=== PATIENT | female | born 1965 | race African-American/Black ===

== ENCOUNTER 2017-12-13 07:02 | Emergency (ER) | payer BC ==
[2017-12-13 07:12] VITALS: BP 140/81
--- NOTE | 2017-12-13 07:27 | UC ---
Throat Pain/Nasal Praveen HPI - HPI Summary HPI Summary: PT PRESENTS WITH ONSET OF ST, PAIN WITH SWALLOWING AND DRY COUGH SINCE LAST NIGHT. NO FEVER, EAR PAIN OR NAUSEA. HAD ONE EPISODE OF POST-TUSSIVE EMESIS. - History of Current Complaint Chief Complaint: UCRespiratory Stated Complaint: SORE THROAT, COUGH Time Seen by Provider: 12/13/17 07:11 Hx Obtained From: Patient Hx Last Menstrual Period: 12/02/17 Onset/Duration: Gradual Onset, Lasting Hours, Still Present Severity: Moderate Pain Intensity: 8 Pain Scale Used: 0-10 Numeric Cough: Nonproductive Associated Signs & Symptoms: Negative: Hoarseness, Nasal Discharge, Fever - Allergies/Home Medications Allergies/Adverse Reactions: Allergies Allergy/AdvReac Type Severity Reaction Status Date / Time celery Allergy Blisters Verified 12/13/17 07:13 morphine Allergy Rash And Verified 12/13/17 07:13 Itching Home Medications: Home Medications guaiFENesin [Mucinex] 600 mg PO BID PRN 12/13/17 [History Confirmed 12/13/17] PMH/Surg Hx/FS Hx/Imm Hx Respiratory History: Asthma - Surgical History Surgical History: Yes Surgery Procedure, Year, and Place: pelvic for endometriosis,rt and lt foot - Family History Known Family History: Positive: Hypertension - Social History Alcohol Use: Rare Substance Use Type: None Smoking Status (MU): Never Smoked Tobacco Review of Systems Constitutional: Negative ENT: Sore Throat Respiratory: Cough Cardiovascular: Negative Gastrointestinal: Vomiting - POST-TUSSIVE All Other Systems Reviewed And Are Negative: Yes Physical Exam Triage Information Reviewed: Yes Appearance: Well-Appearing, No Pain Distress, Well-Nourished Vital Signs: Initial Vital Signs Temp 97.0 F 12/13/17 07:07 Pulse 65 12/13/17 07:07 Resp 16 12/13/17 07:07 BP 140/81 12/13/17 07:07 Pulse Ox 97 12/13/17 07:07 Vital Signs Reviewed: Yes Eyes: Positive: Conjunctiva Clear ENT: Positive: Hearing grossly normal, Pharynx normal, TMs normal Neck: Positive: Supple, Nontender, No Lymphadenopathy Respiratory Exam: Normal Cardiovascular Exam: Normal Abdomen Description: Positive: Soft Musculoskeletal: Positive: No Edema Neurological: Positive: Alert Psychological: Positive: Age Appropriate Behavior Skin: Negative: rashes Diagnostics - Laboratory Diagnostic Studies Completed/Ordered: STREP NEG Throat Pain/Nasal Course/Dx - Differential Dx/Diagnosis Provider Diagnoses: ACUTE PHARYNGITIS Discharge - Sign-Out/Discharge Documenting (check all that apply): Discharge - Discharge Plan Condition: Stable Disposition: HOME Patient Education Materials: Pharyngitis (ED) Referrals: Thang Alvarze MD [Primary Care Provider] - If Needed Additional Instructions: STREP TEST NEGATIVE. YOUR SYMPTOMS ARE LIKELY VIRALLY MEDIATED AND SHOULD RESOLVE ON THEIR OWN WITH TIME. NO INDICATION FOR ANTIBIOTICS AT PRESENT. REST, HYDRATE, OTC MEDS NEEDED. SEEK FOLLOW-UP IF YOU ARE NOT IMPROVING OVER THE NEXT 1-2 WEEKS. OTC CHLORASEPTIC OR CEPACOL LOZENGES AND/OR IBUPROFEN FOR SORE THROAT NEEDED. - Billing Disposition and Condition Condition: STABLE Disposition: HOME
== END 2017-12-13 08:00 | disposition home or self-care (01) ==
LOC: UCEAST 07:02
DX: J02.9 Acute pharyngitis, unspecified (principal); J45.909 Unspecified asthma, uncomplicated; Z88.5 Allergy status to narcotic agent
CPT/HCPCS: 87651; 99211; G0463

== ENCOUNTER 2017-12-27 07:05 | Emergency (ER) | payer BC ==
[2017-12-27 07:19] VITALS: BP 137/77
--- NOTE | 2017-12-27 07:37 | UC ---
Knee Pain HPI - HPI Summary HPI Summary: Patient here with sudden onset of right knee pain that occurred while walking yesterday. She reports a fall about a month ago but no injury more recent than that. Her right knee did hurt initially after the fall but has been fine for weeks. She denies numbness or tingling. She is concerned that her knee may give out due to the pain. She is walking with a limp. - History of Current Complaint Chief Complaint: UCLowerExtremity Stated Complaint: KNEE PAIN Time Seen by Provider: 12/27/17 07:21 Hx Obtained From: Patient Hx Last Menstrual Period: 11/29/17 Onset/Duration: Sudden Onset, Lasting Days - 1 day, Still Present Severity Initially: Moderate Severity Currently: Moderate Location Of Injury: MEDIAL RIGHT KNEE Pain Intensity: 5 Pain Scale Used: 0-10 Numeric Character: Sharp Aggravating Factor(s): Weight Bearing Alleviating Factor(s): Rest Associated Signs And Symptoms: Negative: Swelling, Redness, Bruising, Fever, Weakness, Numbness, Tingling Able to Bear Weight: Yes - WITH PAIN - Allergies/Home Medications Allergies/Adverse Reactions: Allergies Allergy/AdvReac Type Severity Reaction Status Date / Time celery Allergy Blisters Verified 12/27/17 07:19 morphine Allergy Rash And Verified 12/27/17 07:19 Itching Home Medications: Home Medications Ibuprofen 200 mg PO Q6H PRN 12/27/17 [History Confirmed 12/27/17] PMH/Surg Hx/FS Hx/Imm Hx Respiratory History: Asthma - Surgical History Surgical History: Yes Surgery Procedure, Year, and Place: pelvic for endometriosis,rt and lt foot - Family History Known Family History: Positive: Hypertension - Social History Alcohol Use: Rare Substance Use Type: None Smoking Status (MU): Never Smoked Tobacco Review of Systems Constitutional: Negative Skin: Negative Respiratory: Negative Cardiovascular: Negative Gastrointestinal: Negative Musculoskeletal: Arthralgia All Other Systems Reviewed And Are Negative: Yes Physical Exam Triage Information Reviewed: Yes Appearance: Well-Appearing, No Pain Distress, Well-Nourished Vital Signs: Initial Vital Signs Temp 97.3 F 12/27/17 07:14 Pulse 70 12/27/17 07:14 Resp 16 12/27/17 07:14 BP 137/77 12/27/17 07:14 Pulse Ox 100 12/27/17 07:14 Vital Signs Reviewed: Yes Eyes: Positive: Conjunctiva Clear ENT: Positive: Hearing grossly normal Neck: Positive: Supple Respiratory: Positive: No respiratory distress, No accessory muscle use Cardiovascular: Positive: Pulses Normal Abdomen Description: Positive: Soft Musculoskeletal: Positive: ROM Intact, No Edema, Other: - RIGHT KNEE: NO JOINT LINE TENDERNESS OR TENDERNESS OVER ANY BONY PROMINENCES. MCL AND LCL INTACT TO STRESS TESTING. NEG LACHMANS. NEG DRAWERS SIGNS. NEG MCMURRAYS. NO TENDERNESS OVER PATELLAR LIGAMENT OR QUADRICEPS TENDON. MILD TENDERNESS MEDIALLY JUST PROXIMAL TO PATELLA Neurological: Positive: Alert Psychological: Positive: Age Appropriate Behavior Skin: Negative: rashes Diagnostics - Radiology RIGHT KNEE XRAY Xray Interpretation: No Acute Changes Radiology Interpretation Completed By: Radiologist Knee Pain Course/Dx - Differential Dx/Diagnosis Provider Diagnoses: RIGHT KNEE PAIN/OSTEOARTHRITIS Discharge - Sign-Out/Discharge Documenting (check all that apply): Discharge - Discharge Plan Condition: Stable Disposition: HOME Patient Education Materials: Osteoarthritis (ED), Knee Pain (ED) Referrals: Dilshad Anguiano MD [Medical Doctor] - 1 Week Thang Alvarez MD [Primary Care Provider] - If Needed Additional Instructions: X-ray today shows some mild osteoarthritis but no acute injury. Rest, ice, compress, elevate. Follow-up with Ortho next week for further evaluation. OTC Ibuprofen as needed for discomfort. Knee immobilizer and crutches to help with mobility. BE SURE TO GO THROUGH SLOW RANGE OF MOTION AND STRETCHING EXERCISES DAILY YOU ARE ABLE TO PREVENT STIFFENING UP AND MAKING THE DISCOMFORT WORSE. - Billing Disposition and Condition Condition: STABLE Disposition: HOME
--- NOTE | 2017-12-27 08:01 | RAD ---
HISTORY: Medial right knee pain, remote trauma. COMPARISONS: March 05, 2010 VIEWS: 4, Frontal, lateral, axial, and oblique views of the right knee FINDINGS: BONE DENSITY: Normal. BONES: There is no displaced fracture. JOINTS: There is mild tricompartmental osteoarthritis. There is no suprapatellar joint effusion or lipohemarthrosis. ALIGNMENT: There is no dislocation. SOFT TISSUES: Unremarkable. OTHER FINDINGS: None. IMPRESSION: NO ACUTE OSSEOUS INJURY. IF SYMPTOMS PERSIST, RECOMMEND REPEAT IMAGING.
== END 2017-12-27 08:42 | disposition home or self-care (01) ==
LOC: UCEAST 07:05
DX: M25.561 Pain in right knee (principal); M17.11 Unilateral primary osteoarthritis, right knee; J45.909 Unspecified asthma, uncomplicated; Z88.5 Allergy status to narcotic agent
CPT/HCPCS: 99213; G0463

== ENCOUNTER 2018-02-26 19:25 | Emergency (ER) | payer BC, OTHER ==
[2018-02-26 19:45] VITALS: BP 150/88
[2018-02-26] MEDS ORDERED: Ibuprofen TAB* 600 MG PO ONE (20:54)
--- NOTE | 2018-02-26 20:57 | UC ---
Angelique Schwartz Rebecca, scribed for Virginie Echevarria MD on 02/26/18 at 205 . Lower Extremity/Ankle HPI - HPI Summary HPI Summary: Pt is a 52 y/o F who presents to [facility] c/o R buttock pain. On 02/14 (12 days ago ) she was running in the [employer] with someone she works with and she felt a pop or snap in the right buttock. Immediately after, she applied ice, and has tried Epsom salts, and Bengay. She has also been stretching and using heat. Pain radiates into the anterior pelvis, is currently severe, ranked 9/10, unchanged by Tylenol and Ibuprofen, last taken last week. Reports that is feels like there is a knot and is unsure of bruising. No leg weakness no paresthesia last analgesia 5 days ago. Pain worse with prolonged standing Sx aggravated by sitting and driving. Unsure of LNMP or chance of . Injury occurred while at work Pt's medications reviewed this visit - History of Current Complaint Chief Complaint: UCUpperExtremity Stated Complaint: MUSCLE COMPLAINT Time Seen by Provider: 02/26/18 20:45 Hx Obtained From: Patient Hx Last Menstrual Period: 11/29/17 Onset/Duration: Lasting Weeks - 2 weeks, Still Present Severity Currently: Severe Pain Intensity: 9 Pain Scale Used: 0-10 Numeric Aggravating Factor(s): Other - Sitting, driving Alleviating Factor(s): Nothing Able to Bear Weight: Yes - Allergies/Home Medications Allergies/Adverse Reactions: Allergies Allergy/AdvReac Type Severity Reaction Status Date / Time celery Allergy Blisters Verified 02/26/18 19:45 morphine Allergy Rash And Verified 02/26/18 19:45 Itching PMH/Surg Hx/FS Hx/Imm Hx - Additional Past Medical History Additional PMH: NEGATIVE PMHx: HTN, HLD, DM Previously Healthy: Yes - Surgical History Surgical History: Yes Surgery Procedure, Year, and Place: pelvic for endometriosis,rt and lt foot - Family History Known Family History: Positive: Hypertension - Social History Occupation: Employed Full-time Lives: With Family Alcohol Use: Occasionally Substance Use Type: None Smoking Status (MU): Never Smoked Tobacco Review of Systems Constitutional: Negative Skin: Negative Eyes: Negative ENT: Negative Respiratory: Negative Cardiovascular: Negative Gastrointestinal: Negative Genitourinary: Negative Motor: Negative Neurovascular: Negative Musculoskeletal: Other: - R buttock and pelvic pain Neurological: Negative Psychological: Negative All Other Systems Reviewed And Are Negative: Yes Physical Exam - Summary Physical Exam Summary: Vital Signs Reviewed: Yes A+Ox3, no distress Eyes: Conjunctiva Clear, J CARLOS. EOM intact and full ENT: Hearing grossly normal TM x 2 clear, mmoist, uvula midline, no exudate, no erythema Neck: Positive: Supple Respiratory: Positive: No respiratory distress, No accessory muscle use + CTA throughout no w/r Cardiovascular: RRR nl s1, s2 no m/r CBT <2 sec abd soft + BS nt/nd no guarding, no distension Musculoskeletal Exam: MENCHACA x 4 + SLE right with pulling sensation in right buttock + internal/external rotation full rom knee, ankle no spinous process pain + TTP right buttock with direct palp no palpable hematoma Neurological: Positive: Alert, + sensation throughout 2+ patellar + gross sensation Psychological: Positive: Normal Response To Family Skin: Positive: no rash, no ecchymosis Triage Information Reviewed: Yes Vital Signs: Initial Vital Signs Temp 98.9 F 02/26/18 19:38 Pulse 78 02/26/18 19:38 Resp 18 02/26/18 19:38 BP 150/88 02/26/18 19:38 Pulse Ox 99 02/26/18 19:38 Diagnostics - Radiology Hip/Pelvis XR Xray Interpretation: No Acute Changes - NO EVIDENCE FOR FRACTURE. Dr. Echevarria reviewed this report. Radiology Interpretation Completed By: Radiologist Re-Evaluation - Re-Evaluation First Eval Re-Evaluation Time: 21:32 Comment: Pt is doing well, discussed XR results. pt declined crutches. motrin/ apap. heat. stretching. physical therapy referral Lower Extremity Course/Dx - Course Course Of Treatment: Patient medications reviewed this visit. Workman's comp forms were completed. pt with right buttock pain following a pulling sensation while running 2 weeks. suspect muscle strain. will image for avulsion fx - Differential Dx/Diagnosis Provider Diagnoses: muscle strain right gluteus Discharge - Sign-Out/Discharge Documenting (check all that apply): Discharge/Admit/Transfer - Discharge - Discharge Plan Condition: Stable Disposition: HOME Patient Education Materials: Muscle Strain (ED) Referrals: [facility] [Provider Group] [facility] [place] Physical therapy,PT [Medical Doctor] - (Call tomorrow for an appointment. ) Thang Alvarez MD [Primary Care Provider] - Additional Instructions: - alternate ibuprofen 600mg (advil, motrin) and Tylenol 1000mg every 3 hours as needed for guillermo - apply warm heat 20 minutes at a time - Once your muscles are warm, slow gentle stretching exercises - contact the sports medicine clinic to schedule a follow-up appointment - You have been given a referral to physical therapy. okay to call the physical therapist of your choice - you have been given a referral to [facility] physical therapy - Billing Disposition and Condition Condition: STABLE Disposition: Home The documentation as recorded by the Angelique brasher Rebecca accurately reflects the service I personally performed and the decisions made by me, Virginie Echevarria MD.
--- NOTE | 2018-02-26 21:29 | RAD ---
INDICATION: Right buttock pain, right pubic symphysis strain. COMPARISON: There are no prior studies available for comparison. TECHNIQUE: An AP view of the pelvis and frontal and lateral views of the right hip were obtained. FINDINGS: The bones are in normal alignment. No fracture is seen. Joint spaces appear maintained. IMPRESSION: NO EVIDENCE FOR FRACTURE.
== END 2018-02-26 21:44 | disposition home or self-care (01) ==
LOC: UCEAST 19:25
DX: S39.012A Strain of muscle, fascia and tendon of lower back, initial encounter (principal); Y93.02 Activity, running; X58.XXXA Exposure to other specified factors, initial encounter; Y92.89 Other specified places as the place of occurrence of the external cause; Z91.018 Allergy to other foods; Z88.5 Allergy status to narcotic agent
CPT/HCPCS: 81003; 84702; 87086; 99211; A9270-GY; G0463

== ENCOUNTER 2018-07-01 00:06 | Emergency (ER) | payer BC, OTHER ==
[2018-07-01] MEDS ORDERED: Ibuprofen TAB* 400 MG PO ONE (02:22)
[2018-07-01] MEDS ORDERED: oxyCODONE/Acetamin 5/325 MG* TAB PO ONE (02:23)
[2018-07-01 02:39] VITALS: BP 00/00
--- NOTE | 2018-07-01 04:22 | ED ---
Lower Extremity - HPI Summary HPI Summary: Patient is a 53 y/o F w/ c/o left thigh spasms. She reports difficulty laying on the leg and pain with movement, palpation. Sx onset yesterday, patient has been experiencing worse episodes tonight. Episodes are reported to last for about an hour. On triage, pain is rated 0/10. She denies home medications and states she does not take control. - History of Current Complaint Chief Complaint: EDExtremityLower Stated Complaint: INNER THIGH PAIN Time Seen by Provider: 07/01/18 01:57 Hx Obtained From: Patient Hx Last Menstrual Period: 11/29/17 Mechanism Of Injury: Unknown Onset of Pain: Days - onset yesterday Onset/Duration: Days - onset yesterday Severity Currently: None - pain is denied on triage Pain Intensity: 0 Pain Scale Used: 0-10 Numeric Timing: Intermittent, Lasting Hours - lasts an hour Location: Is Discrete @ - left thigh Character Of Pain: Spasmodic Associated Signs And Symptoms: Positive: Negative Aggravating Factor(s): Movement, Other - palpation, lying on left leg Alleviating Factor(s): Nothing - Allergies/Home Medications Allergies/Adverse Reactions: Allergies Allergy/AdvReac Type Severity Reaction Status Date / Time celery Allergy Blisters Verified 02/26/18 19:45 morphine Allergy Rash And Verified 02/26/18 19:45 Itching PMH/Surg Hx/FS Hx/Imm Hx Endocrine/Hematology History: Denies: Hx Diabetes Cardiovascular History: Denies: Hx Hypertension, Hx Pacemaker/ICD Respiratory History: Reports: Hx Asthma - SEASONAL Sensory History: Denies: Hx Hearing Aid Psychiatric History: Denies: Hx Panic Disorder - Cancer History Hx Chemotherapy: No Hx Radiation Therapy: No - Surgical History Surgery Procedure, Year, and Place: pelvic for endometriosis, BILAT GANLION CYSTS AND BONE SPUR REMOVAL Infectious Disease History: No Infectious Disease History: Denies: Hx Clostridium Difficile, Hx Hepatitis, Hx Human Immunodeficiency Virus (HIV), Hx of Known/Suspected MRSA, Hx Shingles, Hx Tuberculosis, History Other Infectious Disease, Traveled Outside the [place] in Last 30 Days - Family History Known Family History: Positive: Hypertension - Social History Alcohol Use: Occasionally Substance Use Type: Reports: None Smoking Status (MU): Never Smoked Tobacco Review of Systems Negative: Fever - on vitals, temp is 97.6 F Positive: Other - left thigh spasms All Other Systems Reviewed And Are Negative: Yes Physical Exam - Summary Physical Exam Summary: VITAL SIGNS: Reviewed. GENERAL: Patient is a well-developed and nourished female who is lying comfortable in the stretcher. Patient is not in any acute respiratory distress. HEAD AND FACE: No signs of trauma. No ecchymosis, hematomas or skull depressions. No sinus tenderness. EYES: PERRLA, EOMI x 2, No injected conjunctiva, no nystagmus. EARS: Hearing grossly intact. Ear canals and tympanic membranes are within normal limits. MOUTH: Oropharynx within normal limits. NECK: Supple, trachea is midline, no adenopathy, no JVD, no carotid bruit, no c- spine tenderness, neck with full ROM. CHEST: Symmetric, no tenderness at palpation LUNGS: Clear to auscultation bilaterally. No wheezing or crackles. CVS: Regular rate and rhythm, S1 and S2 present, no murmurs or gallops appreciated. ABDOMEN: Soft, non-tender. No signs of distention. No rebound no guarding, and no masses palpated. Bowel sounds are normal. EXTREMITIES: FROM in all major joints, no edema, no cyanosis or clubbing; tenderness over medial aspect of the upper thigh. NEURO: Alert and oriented x 3. No acute neurological deficits. Speech is normal and follows commands. SKIN: Dry and warm Triage Information Reviewed: Yes Vital Signs On Initial Exam: Initial Vitals Temp Pulse Resp BP Pulse Ox 97.6 F 79 20 137/76 96 07/01/18 00:08 07/01/18 00:08 07/01/18 00:08 07/01/18 00:08 07/01/18 00:08 Vital Signs Reviewed: Yes Diagnostics - Vital Signs Vital Signs Temp Pulse Resp BP Pulse Ox 07/01/18 02:38 0 F 0 0 00/00 0 07/01/18 02:31 15 07/01/18 00:08 97.6 F 79 20 137/76 96 - Laboratory Lab Statement: Any lab studies that have been ordered have been reviewed, and results considered in the medical decision making process. Re-Evaluation - Re-Evaluation First Eval Re-Evaluation Time: 02:32 Comment: As there is no ultrasound available at this time, patient will be discharged to home and is advised to follow up with PCP or return to ED for US to rule out DVT. Patient understands and agrees with this follow up plan. Lower Extremity Course/Dx - Course Course Of Treatment: Patient is a 53 y/o F w/ c/o left thigh spasms. She reports difficulty laying on the leg and pain with movement, palpation. Sx onset yesterday, patient has been experiencing worse episodes tonight. Episodes are reported to last for about an hour. On triage, pain is rated 0/10. Physical exam showed tenderness over medial aspect of the upper left thigh. During ED course, patient was given Percocet 5/325 1 tab PO ONCE. As there is no ultrasound available at this time, patient will be discharged to home and is advised to follow up with PCP or return to ED for US to rule out DVT. Patient understands and agrees with this follow up plan. Dx of left thigh pain. - Diagnoses Provider Diagnoses: Left thigh pain Discharge - Sign-Out/Discharge Documenting (check all that apply): Patient Departure - discharge - Discharge Plan Condition: Stable Disposition: HOME Prescriptions: Ibuprofen TAB* [Motrin TAB* 800 MG] 800 mg PO Q6H PRN #30 tab PRN Reason: Pain oxyCODONE/Acetamin 5/325 MG* [Percocet 5/325 TAB*] 1 tab PO Q6H PRN #10 tab MDD 4 PRN Reason: Pain Patient Education Materials: Leg Pain (ED) Referrals: Thang Alvarez MD [Primary Care Provider] - 1 Day Additional Instructions: RETURN TO THE EMERGENCY DEPARTMENT FOR CHANGING OR WORSENING SYMPTOMS. IT IS HIGHLY RECOMMENDED THAT YOU FOLLOW UP WITH YOUR PRIMARY CARE PHYSICIAN OR COME TO THE ED FOR AN ULTRASOUND TO RULE OUT DEEP VEIN THROMBOSIS TOMORROW. - Attestation Statements Document Initiated by Scribe: Yes Documenting Scribe: López Hodge Provider For Whom Gray is Documenting (Include Credential): Monet Trinh MD Scribe Attestation: I, López Hodge , scribed for Monet Trinh MD on 07/01/18 at 0434.
== END 2018-07-01 02:38 | disposition home or self-care (01) ==
LOC: ED 00:06
DX: M79.652 Pain in left thigh (principal); Z88.5 Allergy status to narcotic agent
CPT/HCPCS: 99281; A9270-GY

== ENCOUNTER 2019-09-27 13:56 | Emergency (ER) | payer OTHER ==
[2019-09-27] MEDS ORDERED: Ketorolac *IM* INJ* 60 MG/2 ML VIAL IM ONE (14:05)
[2019-09-27] MEDS ORDERED: Cyclobenzaprine TAB* 10 MG PO ONE (14:05)
--- NOTE | 2019-09-27 14:07 | ED ---
Upper Extremity Pain - HPI Summary HPI Summary: Pt is a 54 y/o F presenting to the ED brought in by EMS for R-sided shoulder pain. Per EMS, pt had sudden onset R shoulder pain around 1200 that progressively worsened and is now 10/10 pain. EMS states she denies CP or SOB but wanted to come to ED to r/o cardiac etiology. Pt states she was just standing when it came on and shes never experienced this before. She reports some slight R-sided neck pain. Denies recent surgeries. - History of Current Complaint Stated Complaint: SHOULDER PAIN FROM CC Time Seen by Provider: 09/27/19 14:00 Hx Obtained From: Patient, EMS Mechanism Of Injury: Unknown Onset/Duration: Started Hours Ago, Still Present Timing: Constant, Lasting Hours Severity Initially: Moderate Severity Currently: Severe Pain Location: Shoulder - right Aggravating Factor(s): Nothing Alleviating Factor(s): Nothing Associated Signs & Symptoms: Positive: Neck Pain. Negative: Chest Pain, SOB - Allergies/Home Medications Allergies/Adverse Reactions: Allergies Allergy/AdvReac Type Severity Reaction Status Date / Time morphine Allergy Unknown Verified 09/27/19 13:19 Reaction Details PMH/Surg Hx/FS Hx/Imm Hx Previously Healthy: Yes Cardiovascular History: Denies: Hx Myocardial Infarction Respiratory History: Denies: Hx Chronic Obstructive Pulmonary Disease (COPD) - Family History Known Family History: Positive: Hypertension - Social History Alcohol Use: None Hx Substance Use: No Substance Use Type: Reports: None Hx Tobacco Use: No Smoking Status (MU): Never Smoked Tobacco Review of Systems Negative: Chest Pain Negative: Shortness Of Breath Positive: Arthralgia, Myalgia All Other Systems Reviewed And Are Negative: Yes Physical Exam - Summary Physical Exam Summary: Constitutional: Well-developed, Well-nourished, Alert. (-) Distressed Skin: Warm, Dry HENT: Normocephalic; Atraumatic Eyes: Conjunctiva normal Neck: Musculoskeletal ROM normal neck. (-) JVD, (-) Stridor, (-) Tracheal deviation Cardio: Rhythm regular, rate normal, Heart sounds normal; Intact distal pulses; The pedal pulses are 2+ and symmetric. Radial pulses are 2+ and symmetric. (-) Murmur Pulmonary/Chest wall: Effort normal. (-) Respiratory distress, (-) Wheezes, (-) Rales Abd: Soft, (-) tenderness, (-) Distension, (-) Guarding, (-) Rebound Musculoskeletal: (-) Edema. Tender along the R upper paraspinal muscles. No ecchymosis or crepitus. Full ROM at shoulder. Neurovascular intact. Lymph: (-) Cervical adenopathy Neuro: Alert, Oriented x3 Psych: Mood and affect Normal Triage Information Reviewed: Yes Vital Signs Reviewed: Yes Procedures - Sedation Patient Received Moderate/Deep Sedation with Procedure: No Diagnostics - Laboratory Lab Statement: Any lab studies that have been ordered have been reviewed, and results considered in the medical decision making process. - Radiology CXR Radiology Interpretation Completed By: Radiologist Summary of Radiographic Findings: 1. Potential obstructive lung disease. 2. No acute cardiopulmonary process evident. ED physician has reviewed this report. Shoulder XR Radiology Interpretation Completed By: Radiologist Summary of Radiographic Findings: 1. No cortical disruption or suspicious trabecular irregularity to suggest fracture. 2. Normal acromioclavicular and glenohumeral joint alignment. 3. Mild AC joint osteoarthritis. 4. Negative for calcific tendinopathy or abnormal soft tissue contour. ED physician has reviewed this report. Course/Dx - Course Course Of Treatment: Pt is a 54 y/o F presenting to the ED brought in by EMS for R-sided shoulder pain. Per EMS, pt had sudden onset R shoulder pain around 1200 that progressively worsened and is now 10/10 pain. EMS states she denies CP or SOB but wanted to come to ED to r/o cardiac etiology. Pt also notes some R -sided neck pain. On exam, pt is tender along the R upper paraspinal muscles. No ecchymosis or crepitus. Full ROM at shoulder. Neurovascular intact. Shoulder XR shows: 1. No cortical disruption or suspicious trabecular irregularity to suggest fracture. 2. Normal acromioclavicular and glenohumeral joint alignment. 3. Mild AC joint osteoarthritis. 4. Negative for calcific tendinopathy or abnormal soft tissue contour. CXR shows: 1. Potential obstructive lung disease. 2. No acute cardiopulmonary process evident. Pt will be d/c'ed with dx of subscapular bursitis. She is stable and agreeable with this plan. - Diagnoses Provider Diagnoses: Subscapular bursitis Discharge ED - Sign-Out/Discharge Documenting (check all that apply): Patient Departure - Discharge Plan Condition: Stable Disposition: HOME Patient Education Materials: Shoulder Bursitis (ED) Referrals: [facility] [Outside] Additional Instructions: Please follow up with your primary care provider within the next 2-3 days. Return to the emergency department with any new or worsening symptoms. - Billing Disposition and Condition Condition: STABLE Disposition: Home - Attestation Statements Document Initiated by Khadaribizzy: Yes Documenting Scribe: Anai Barragan Provider For Whom Gray is Documenting (Include Credential): Sachin Maciel DO. Scribe Attestation: Anai Schwartz scribed for Sachin Maciel DO. on 09/27/19 at 1532. Scribe Documentation Reviewed: Yes Provider Attestation: The documentation as recorded by the Anai brasher accurately reflects the service I personally performed and the decisions made by , Sachin Maciel DO. Status of Scribe Document: Viewed
[2019-09-27] MEDS ORDERED: Lidocaine PATCH 5%* 1 PATCH TRANSDERM ONE (14:25)
[2019-09-27] MEDS ORDERED: Lidocaine PATCH 5%* 1 PATCH TRANSDERM SCH (14:30)
[2019-09-27] MEDS ORDERED: Acetaminophen TAB* 325 MG PO ONE (15:09)
[2019-09-27 15:25] VITALS: BP 144/94
[2019-09-27] MEDS ORDERED: Lidocaine Patch REMOVE* 1 NOTE MISC SCH ×2 (21:00)
== END 2019-09-27 15:24 | disposition home or self-care (01) ==
LOC: ED 13:56 → MERGE 13:56 → ED 15:24
DX: M75.51 Bursitis of right shoulder (principal); Z88.5 Allergy status to narcotic agent
CPT/HCPCS: 71045; 96372; 99282; A9270-GY; J1885